=== PATIENT | female | born 1960 | race Caucasian/White ===

== ENCOUNTER 2020-02-10 11:22 | Outpatient (CLI) | payer OTHER ==
[~2020-02-10 11:22] MED LIST: BACLOFEN10 MG; LOSARTAN POTAS100 MG; METFORMIN HCL850 MG; NEURONTIN300 MG PO; NEURONTIN800 MG
== END 2020-02-10 11:28 | disposition home or self-care (01) ==
LOC: RAD 11:22
PROVIDERS: ATTEND Orthopaedic Surgery
DX: M54.5 Low back pain (principal); M25.551 Pain in right hip; M25.552 Pain in left hip; M79.671 Pain in right foot; M79.672 Pain in left foot

== ENCOUNTER 2020-02-10 13:05 | Outpatient (CLI) | payer OTHER | END 2020-02-10 13:55 | disposition home or self-care (01) | LOC: NUCLEAR 13:05 | PROVIDERS: ATTEND Orthopaedic Surgery | DX: M81.0 Age-related osteoporosis without current pathological fracture (principal) ==